=== PATIENT | male | born 1970 ===

== ENCOUNTER 2016-12-20 20:47 | Inpatient (IN) | payer MEDICARE, MEDICAID ==
[2016-12-20 20:47] VITALS: BMI 20.7
[2016-12-20 22:29] LABS: BASO # 0.2 K/uL (0.0-0.2); BASO % 2.6 % (0.0-2.0); EOS # 0.2 K/uL (0.0-0.7); EOS % 3.5 % (0.0-4.0); HEMATOCRIT 41.8 % (35.0-51.0); LYMPH # 0.9 K/uL (1.0-4.3); LYMPH % 15.1 % (20.0-40.0); MEAN CELL VOLUME 95.2 fL (80.0-94.0); MEAN CORPUSCULAR HEMOGLOBIN 31.4 pg (27.0-31.0); MEAN PLATELET VOLUME 9.1 fL (7.2-11.7); MONO # 0.6 K/uL (0.0-0.8); MONO % 10.2 % (0.0-10.0); RED CELL DISTRIBUTION WIDTH 18.2 % (11.5-14.5); WHITE BLOOD COUNT 5.9 K/uL (4.8-10.8)
[2016-12-20 22:37] LABS: POTASSIUM 5.1 mmol/L (3.6-5.2)
[2016-12-20 22:39] LABS: ALB/GLOB RATIO 1.7 (1.0-2.1); BILIRUBIN,TOTAL 0.8 mg/dL (0.2-1.3); TOTAL PROTEIN 7.8 g/dL (6.3-8.3)
[2016-12-20 22:40] LABS: CALCIUM 8.2 mg/dl (8.6-10.4)
[2016-12-20] MEDS ORDERED: (Novolin R) Insulin Human Regular 100 units/ml vial IV STA (23:01)
[2016-12-20] MEDS ORDERED: (Novolin R) Insulin Human Regular 100 units/ml vial ONE (23:07)
[2016-12-21] MEDS ORDERED: Piperacill/Tazo 2.25gm in Dex 2.25 GM/50 ML BAG IVPB STA (02:29)
--- NOTE | 2016-12-21 04:29 | C.PDOC ---
History Of Present Illness 46 y/o male presents to ED sent by Dr. Anderson for admission. Patient was seen at his office for recurrent right ear pain and recently completed 8week course of antibiotic for malignant Tony external. Patient denies fever, headache, nasal congestion or any other complaints at this time. Chief Complaint (Nursing): ENT Problem History Per: Patient History/Exam Limitations: None Onset/Duration Of Symptoms: Days Past Medical History Reviewed: Historical Data, Nursing Documentation, Vital Signs Vital Signs: Last Vital Signs Temp 98 F 12/21/16 03:07 Pulse 68 12/21/16 03:07 Resp 18 12/21/16 03:07 BP 160/70 H 12/21/16 03:07 Pulse Ox 98 12/21/16 04:50 - Medical History PMH: Anemia, Diabetes (type II), HTN, Hypercholesterolemia, Hyperlipidemia, Pneumonia, End Stage Renal Disease (Dialysis M,W,F), Chronic Kidney Disease Surgical History: Appendectomy - [facility] Procedures DILATION OF L RENAL ART WITH 2 DRUG-ELUT, PERC APPROACH (10/11/16) DILATION OF R RENAL ART WITH 3 DRUG-ELUT, PERC APPROACH (10/11/16) FLUOROSCOPY OF SUPERIOR VENA CAVA, GUIDANCE (10/11/16) HEMODIALYSIS (11/22/14) INFLUENZA VACCINATION (11/22/14) INSERTION OF INFUSION DEV INTO SUP VENA CAVA, PERC APPROACH (10/11/16) PERFORMANCE OF URINARY FILTRATION, MULTIPLE (10/11/16) PERFORMANCE OF URINARY FILTRATION, SINGLE (03/25/15) ULTRASONOGRAPHY OF SUPERIOR VENA CAVA, GUIDANCE (10/11/16) Family History: States: No Known Family Hx - Social History Hx Alcohol Use: No Hx Substance Use: No Review Of Systems Constitutional: Negative for: Fever, Chills ENT: Positive for: Ear Pain. Negative for: Ear Discharge, Nose Congestion Cardiovascular: Negative for: Chest Pain Respiratory: Negative for: Shortness of Breath Gastrointestinal: Negative for: Nausea, Vomiting Skin: Negative for: Rash Physical Exam - Physical Exam Appears: Non-toxic, No Acute Distress Skin: Normal Color, Warm, Dry Head: Atraumatic, Normacephalic Eye(s): bilateral: Normal Inspection, EOMI Ear(s): Left: Normal, Right: TM Erythema, Other (Pinna tender to touch) Oral Mucosa: Moist Throat: Normal, No Erythema, No Exudate, No Drooling Neck: Normal ROM, Supple Chest: Symmetrical Cardiovascular: Rhythm Regular Respiratory: Normal Breath Sounds, No Rales, No Rhonchi, No Wheezing Gastrointestinal/Abdominal: Soft, No Tenderness, No Guarding, No Rebound Neurological/Psych: Oriented x3 ED Course And Treatment - Laboratory Results Result Diagrams: 12/20/16 22:26 12/20/16 22:26 O2 Sat by Pulse Oximetry: 98 (RA) Pulse Ox Interpretation: Normal Medical Decision Making Medical Decision Making: Spoke to Dr. Anderson who advised to defer antibiotics for ID Spoke to Dr. Basilio who will admit patient to her service Disposition - Disposition Disposition: HOSPITALIZED Disposition Time: 00:30 Condition: STABLE - Clinical Impression Clinical Impression: Otitis externa, ESRD (end stage renal disease), Hyperglycemia - Scribe Statement The provider has reviewed the documentation as recorded by the Justinibsakina Skinner All medical record entries made by the Justinibsakina were at my direction and personally dictated by me. I have reviewed the chart and agree that the record accurately reflects my personal performance of the history, physical exam, medical decision making, and the department course for this patient. I have also personally directed, reviewed, and agree with the discharge instructions and disposition.
[2016-12-21 08:42] LABS: BASO # 0.1 K/uL (0.0-0.2); BASO % 1.3 % (0.0-2.0); EOS # 0.3 K/uL (0.0-0.7); EOS % 4.8 % (0.0-4.0); HEMATOCRIT 41.1 % (35.0-51.0); LYMPH # 0.7 K/uL (1.0-4.3); MEAN CELL VOLUME 93.4 fL (80.0-94.0); MEAN CORPUSCULAR HEMOGLOBIN 30.6 pg (27.0-31.0); MEAN CORPUSCULAR HGB CONC 32.8 g/dL (33.0-37.0); MEAN PLATELET VOLUME 8.6 fL (7.2-11.7); MONO # 0.7 K/uL (0.0-0.8); MONO % 10.5 % (0.0-10.0); RED CELL DISTRIBUTION WIDTH 17.9 % (11.5-14.5); WHITE BLOOD COUNT 6.4 K/uL (4.8-10.8)
[2016-12-21 08:52] LABS: POTASSIUM 5.1 mmol/L (3.6-5.2)
[2016-12-21 08:54] LABS: ALB/GLOB RATIO 1.7 (1.0-2.1); BILIRUBIN,TOTAL 0.8 mg/dL (0.2-1.3)
[2016-12-21 08:55] LABS: CALCIUM 7.9 mg/dl (8.6-10.4)
[2016-12-21] MEDS ORDERED: Piperacill/Tazo 2.25gm in Dex 2.25 GM/50 ML BAG IVPB SCH (10:00)
--- NOTE | 2016-12-21 11:27 | CP.PCM.PN ---
Subjective - Date & Time of Evaluation Date of Evaluation: 12/21/16 Time of Evaluation: 10:30 - Subjective Subjective: H"&P dictated #[id number] Objective - Vital Signs/Intake and Output Vital Signs (last 24 hours): Temp Pulse Resp BP Pulse Ox 98.7 F 70 20 196/80 H 97 12/21/16 08:00 12/21/16 08:00 12/21/16 08:00 12/21/16 08:00 12/21/16 08:00 Intake and Output: 12/21/16 12/21/16 06:59 18:59 Intake Total 170 Balance 170 - Medications Medications: Current Medications Clonidine HCl (Catapres) 0.3 mg PO TID KI Heparin Sodium (Porcine) (Heparin) 5,000 units SC Q12 KI Piperacillin Sod/Tazobactam Sod (Zosyn 2.25 Gm Iv Premix) 2.25 gm in 50 mls @ 100 mls/hr IVPB Q8H KI Labetalol HCl (Trandate) 200 mg PO BID KI Losartan Potassium (Cozaar) 25 mg PO DAILY KI Minoxidil (Loniten) 10 mg PO BIDPC KI Pneumococcal Polyvalent Vaccine (Pneumovax 23 Vaccine) 0.5 ml IM .ONCE ONE Stop: 12/23/16 10:01 - Labs Labs: 12/21/16 08:31 12/21/16 08:31
--- NOTE | 2016-12-21 14:48 | CP.PCM.CON ---
History of Present Illness - History of Present Illness History of Present Illness: dictated Past Patient History - Infectious Disease Hx of Infectious Diseases: None - Tetanus Immunizations Tetanus Immunization: Unknown - Past Medical History & Family History Past Medical History?: Yes - Past Social History Smoking Status: Never Smoked - CARDIAC Hx Hypercholesterolemia: Yes Hx Hypertension: Yes - PULMONARY Hx Pneumonia: Yes - NEUROLOGICAL Hx Neurological Disorder: No - HEENT Hx HEENT Problems: Yes Hx Cataracts: Yes (with surgery) - RENAL Hx Chronic Kidney Disease: Yes - ENDOCRINE/METABOLIC Hx Endocrine Disorders: Yes Hx Diabetes Mellitus Type 1: Yes - HEMATOLOGICAL/ONCOLOGICAL Hx Anemia: Yes - INTEGUMENTARY Hx Dermatological Problems: No - MUSCULOSKELETAL/RHEUMATOLOGICAL Hx Musculoskeletal Disorders: No Hx Falls: No - GASTROINTESTINAL Hx Gastrointestinal Disorders: Yes Hx Nausea: Yes Hx Vomiting: Yes Other/Comment: DIABETIC GASTROPARESIS - GENITOURINARY/GYNECOLOGICAL Hx Genitourinary Disorders: Yes Other/Comment: Failed renal transplant - PSYCHIATRIC Hx Substance Use: No - SURGICAL HISTORY Hx Appendectomy: Yes - ANESTHESIA Hx Anesthesia: Yes Hx Anesthesia Reactions: No Meds Allergies/Adverse Reactions: Allergies Allergy/AdvReac Type Severity Reaction Status Date / Time No Known Allergies Allergy Verified 11/06/16 15:40 - Medications Medications: Current Medications Clonidine HCl (Catapres) 0.3 mg PO TID [facility] Last Admin: 12/21/16 14:37 Dose: Not Given Heparin Sodium (Porcine) (Heparin) 5,000 units SC Q12 [facility] Last Admin: 12/21/16 11:34 Dose: 5,000 units Heparin Sodium (Porcine) (Heparin) 3,000 units IVP MWF [facility] Piperacillin Sod/Tazobactam Sod (Zosyn 2.25 Gm Iv Premix) 2.25 gm in 50 mls @ 100 mls/hr IVPB Q8H [facility] Last Admin: 12/21/16 10:00 Dose: 100 mls/hr Labetalol HCl (Trandate) 200 mg PO BID [facility] Last Admin: 12/21/16 11:33 Dose: 200 mg Losartan Potassium (Cozaar) 25 mg PO DAILY [facility] Last Admin: 12/21/16 11:34 Dose: 25 mg Minoxidil (Loniten) 10 mg PO BIDPC [facility] Last Admin: 12/21/16 11:33 Dose: 10 mg Pneumococcal Polyvalent Vaccine (Pneumovax 23 Vaccine) 0.5 ml IM .ONCE ONE Stop: 12/23/16 10:01 Results - Vital Signs Recent Vital Signs: Last Vital Signs Temp 98.7 F 12/21/16 08:00 Pulse 70 12/21/16 08:00 Resp 20 12/21/16 08:00 BP 196/80 H 12/21/16 08:00 Pulse Ox 97 12/21/16 08:00 - Labs Result Diagrams: 12/21/16 08:31 12/21/16 08:31 Labs: Laboratory Results - last 24 hr 12/20/16 12/20/16 12/21/16 22:26 22:26 00:13 WBC 5.9 RBC 4.39 L Hgb 13.8 Hct 41.8 MCV 95.2 H MCH 31.4 H MCHC 33.0 RDW 18.2 H Plt Count 147 MPV 9.1 Neut % (Auto) 68.6 Lymph % (Auto) 15.1 L Dickenson % (Auto) 10.2 H Eos % (Auto) 3.5 Baso % (Auto) 2.6 H Neut # 4.0 Lymph # 0.9 L Dickenson # 0.6 Eos # 0.2 Baso # 0.2 Sodium 123 L Potassium 5.1 Chloride 83 L Carbon Dioxide 19 L Anion Gap 26 H BUN 76 H Creatinine 8.3 H* Est GFR ( Amer) 8 Est GFR (Non-Af Amer) 7 POC Glucose (mg/dL) 142 H Random Glucose 602 H* Hemoglobin A1c Calcium 8.2 L Total Bilirubin 0.8 AST 18 ALT 34 Alkaline Phosphatase 141 H Total Protein 7.8 Albumin 4.9 Globulin 2.9 Albumin/Globulin Ratio 1.7 12/21/16 12/21/16 12/21/16 01:45 02:27 04:18 WBC RBC Hgb Hct MCV MCH MCHC RDW Plt Count MPV Neut % (Auto) Lymph % (Auto) Dickenson % (Auto) Eos % (Auto) Baso % (Auto) Neut # Lymph # Dickenson # Eos # Baso # Sodium Potassium Chloride Carbon Dioxide Anion Gap BUN Creatinine Est GFR ( Amer) Est GFR (Non-Af Amer) POC Glucose (mg/dL) 34 L* 72 183 H Random Glucose Hemoglobin A1c Calcium Total Bilirubin AST ALT Alkaline Phosphatase Total Protein Albumin Globulin Albumin/Globulin Ratio 12/21/16 12/21/16 12/21/16 06:36 08:31 08:31 WBC 6.4 RBC 4.40 Hgb 13.5 Hct 41.1 MCV 93.4 MCH 30.6 MCHC 32.8 L RDW 17.9 H Plt Count 146 MPV 8.6 Neut % (Auto) 72.4 Lymph % (Auto) 11.0 L Dickenson % (Auto) 10.5 H Eos % (Auto) 4.8 H Baso % (Auto) 1.3 Neut # 4.6 Lymph # 0.7 L Dickenson # 0.7 Eos # 0.3 Baso # 0.1 Sodium 127 L Potassium 5.1 Chloride 87 L Carbon Dioxide 19 L Anion Gap 26 H BUN 89 H Creatinine 9.0 H* Est GFR ( Amer) 8 Est GFR (Non-Af Amer) 6 POC Glucose (mg/dL) 216 H Random Glucose 261 H Hemoglobin A1c Calcium 7.9 L Total Bilirubin 0.8 AST 19 ALT 31 Alkaline Phosphatase 119 Total Protein 7.0 Albumin 4.4 Globulin 2.6 Albumin/Globulin Ratio 1.7 12/21/16 12/21/16 12/21/16 08:31 10:30 12:31 WBC RBC Hgb Hct MCV MCH MCHC RDW Plt Count MPV Neut % (Auto) Lymph % (Auto) Dickenson % (Auto) Eos % (Auto) Baso % (Auto) Neut # Lymph # Dickenson # Eos # Baso # Sodium Potassium Chloride Carbon Dioxide Anion Gap BUN Creatinine Est GFR ( Amer) Est GFR (Non-Af Amer) POC Glucose (mg/dL) 302 H 297 H Random Glucose Hemoglobin A1c 8.4 H D Calcium Total Bilirubin AST ALT Alkaline Phosphatase Total Protein Albumin Globulin Albumin/Globulin Ratio
--- NOTE | 2016-12-21 16:26 | PN ---
DATE: 12/21/2016 REASON FOR CONSULTATION: Malignant otitis externa and ear pain. HISTORY OF PRESENT ILLNESS: This is a 46-year-old male who was admitted to [facility] a month ago with a diagnosis of malignant otitis externa. The patient was given IV antibiotics via PICC line. He presented to me yesterday in the office saying that his ear pain is back. He was sent to the ER at [facility] and was admitted to the hospital. The patient states that the pain is the same as before on and off, moderate in intensity and has decreased hearing on the right side, it is constant and moderate in intensity. He has had that for a month. PAST MEDICAL HISTORY: As noted in the chart by me. MEDICATIONS: As noted in the chart by me. PHYSICAL EXAMINATION: HEAD: Atraumatic and normocephalic. FACE: Good facial movements bilaterally. CONSTITUTIONAL: Well fed, well nourished. COMMUNICATION: Communicates well and appropriately. EXTERNAL NOSE AND EARS: No masses. No lesions. No erythema. No edema. INTERNAL NOSE: Deviated septum. No masses. No lesions. No erythema. No edema. EARS: The wick that I are placed in the office is still in place. NECK: Supple. THYROID: No thyromegaly. No goiter. LYMPH NODES: No lymphadenopathy of the neck. ORAL CAVITY AND OROPHARYNX: No masses. No lesions. No erythema. No edema. LIPS AND GUMS: No masses. No lesions. No erythema. No edema. ASSESSMENT: 1. Possible malignant otitis externa. 2. Deviated septum. PLAN: The patient should have a repeat CT, MRI and bone scan done to see if he has persistent malignant otitis externa. Eb Anderson MD [facility]
[2016-12-21] MEDS: Meropenem 500 MG in Sodium Chloride 0.9% 100 ML IVPB SCH (19:03)
[2016-12-21] MEDS: (Novolin R) Insulin Human Regular 100 units/ml vial SC SCH (22:00)
--- NOTE | 2016-12-21 22:34 | HP ---
CHIEF COMPLAINT: The patient was referred by Dr. Anderson for persistent malignant otitis externa. HISTORY OF PRESENT ILLNESS: Mr. Albrecht is a 46-year-old male with past medical history of diabetes mellitus; hypertension; end-stage renal disease, status post kidney transplant in 2003, a failed transplant, back on hemodialysis, receiving hemodialysis on Saturday, Saturday and Saturday; hyperlipidemia; history of anemia from chronic disease; osteomyelitis, treated with long-term IV antibiotics, recently admitted to [facility] in the month of September for a malignant otitis externa. The patient was given 8 weeks of IV antibiotics via PICC line. After the antibiotics were completed, the patient went back to ENT for evaluation. The patient was also complaining of intermittent right ear pain. The patient was evaluated by ENT and was found to be having persistent otitis externa, and the patient is being sent to ED for further evaluation and treatment. When I examined, the patient denies any headache or dizziness, complaining of right ear pain intermittently; there is no oozing or discharge. Denies any left ear pain, but complains of decreased hearing in the right ear. Denies any chest pain, shortness of breath or wheezing. Denies any nausea, vomiting, abdominal pain, diarrhea or constipation. Denies any urinary complaints. Denies any leg pains or leg cramps. Denies any other neurologic symptoms. PAST MEDICAL HISTORY: Hypertension; diabetes mellitus; end-stage renal disease; hyperlipidemia; history of osteomyelitis; history of anemia; right ear malignant otitis externa, status post completion of long-term IV antibiotics. PAST SURGICAL HISTORY: Status post kidney transplant in 2003, appendectomy and AV fistula. FAMILY HISTORY: Diabetes mellitus in grandfather. PERSONAL HISTORY: He is single, lives alone, currently not working. SOCIAL HISTORY: Denies smoking, alcohol or drug abuse. ALLERGIES: NO KNOWN DRUG ALLERGIES. MEDICATIONS: Include Nephro-Elvie, Velphoro 500 mg p.o. t.i.d., simvastatin 10 mg at bedtime, Zofran as needed, minoxidil 10 mg p.o. b.i.d., labetalol 200 mg p.o. b.i.d., insulin lispro 3 units subQ t.i.d., glargine insulin 12 units subQ, Lantus 10 units subQ q.a.m., Nexium 40 mg daily, clonidine 0.3 mg p.o. t.i.d. and Sensipar 30 mg p.o. daily. REVIEW OF SYSTEMS: As described in history of present illness. All other systems reviewed and were found to be negative. PHYSICAL EXAMINATION: GENERAL: Middle-aged male, lying in bed, in no acute distress. VITAL SIGNS: Blood pressures 175/88, pulse 77, respirations 20, temperature 98.2 degrees Fahrenheit and O2 sats 94% on room air. HEENT: Pupils equal, round and reacting to light and accommodation. Extraocular muscles intact. No icterus. Positive pallor. No oral thrush. No pharyngeal congestion. No nasal congestion. Right ear with dressing in place. NECK: Supple. No JVD. No thyromegaly. LUNGS: Bilateral vesicular breath sounds. No wheezing. No rhonchi. CARDIOVASCULAR SYSTEM: S1 and S2 present, regular. ABDOMEN: Soft and nontender. Bowel sounds present. No guarding. No rigidity. No rebound tenderness noted. CENTRAL NERVOUS SYSTEM: Alert, awake and oriented x3. No focal deficits noted. EXTREMITIES: No edema. Palpable peripheral pulses. Left upper extremity AV access. LABORATORY DATA: Labs done on admission, WBC 5.9, hemoglobin 13.8, hematocrit 41.8 and platelets 147. Sodium 123, potassium 5.1, chloride 83, bicarbonate 19, BUN 76, creatinine 8.3, glucose 602, hemoglobin A1c of 8.4, calcium 8.2, AST 18, ALT 34, alkaline phosphatase 141, total protein 7.8 and albumin 4.9. ASSESSMENT: A middle-aged male with history of hypertension; diabetes mellitus; end-stage renal disease, on hemodialysis; status post kidney transplant, failed transplant requiring hemodialysis; hyperlipidemia; history of osteomyelitis; history of anemia of chronic disease; recently treated for malignant otitis externa of the right ear with long-term IV antibiotics, returning to the hospital with right ear pain and with persistent infection, the patient is being admitted for further management. 1. Possible right ear otitis externa, status post failed antibiotic therapy, exterminator helper and uncontrolled hypertension. 2. Diabetes mellitus, uncontrolled. 3. End-stage renal disease, on hemodialysis, Saturday, Saturday, Saturday. 4. Hyperlipidemia. 5. History of osteomyelitis, status post treatment. PLAN: The patient is being admitted to the medical floor. The patient's blood pressure is high, we will adjust his blood pressure medication. Zosyn was discontinued and the patient was started on meropenem by Dr. Hughes, it is 500 mg IV q. 12 hours. Blood cultures were done. Renal consult and ENT consult requested. The patient is for hemodialysis today. We will resume all his home medications. We will add further recommendation as his clinical course progresses. Gretchen Basilio MD
--- NOTE | 2016-12-22 02:14 | CON ---
INFECTIOUS DISEASE CONSULTATION DATE: REQUESTED BY: Gretchen Basilio MD HISTORY OF PRESENT ILLNESS: This patient is a 46-year-old male. He has a history of end-stage renal disease. He also has a history of failed transplant, which he had from his sister and he says after the failed transplant, he has been 2 to 3 years on dialysis now. He has diabetes type 2, hypertension, hyperlipidemia, hypercholesterolemia, history of pneumonia, and chronic kidney disease. He has been having this recurrent right ear pain and he recently was in [place]. He said he stayed there a month and then had a PICC line in the left arm and went home with 8 weeks of antibiotics for malignant otitis externa. I was not able to get the name of the Infectious Diseases who treated him, but in the next few days. He denies any fever and no headache. Does complain of pain over the right ear. He states he is also having trouble hearing and he has pain, which comes and goes. He cannot touch his right ear and the surrounding area is also very tender at times. He did tell me that he took 8 weeks of Zosyn, which just completed yesterday and he saw Dr. Anderson and was told that the infection was still there, hence was admitted here and I am asked to evaluate for antibiotics and the last antibiotic he had was Zosyn at a decreased dose because of his renal failure. He denies any fevers out as such and he does have surgical history of appendicectomy and failed transplant kidney from his sister and also fistula, he has a right arm fistula at this time and previous history of dialysis prior to the transplant. PAST SURGICAL HISTORY: Appendicectomy. FAMILY HISTORY: Noncontributory otherwise. SOCIAL HISTORY: Negative for alcohol or drug abuse according to the patient. ALLERGIES: HE IS NOT ALLERGIC TO ANY MEDICINE. At the present time, he was seen in the Dialysis Unit. MEDICATIONS: Catapres, heparin subcutaneous, Trandate, Cozaar, and I just put him on meropenem at this time. He is also on minoxidil for his blood pressure and at this time I would discontinue the Zosyn and start him on meropenem. REVIEW OF SYSTEMS: He does complain of ear pain. He does complain of decreased hearing. He states it was slightly better after the treatment, but he is denying any nausea or vomiting. No cough or cold and no other symptoms at this time. He is on dialysis and is not able to get much elaborate history. PHYSICAL EXAMINATION GENERAL: He is alert and oriented x3. He is able to give history. VITAL SIGNS: T-max is 98.2 today, pulse is 77, and blood pressure is 192/77. HEENT: Head is atraumatic and normocephalic. Right ear has tenderness present and it is not that warm to touch, but it is swollen and has tenderness on the pinna as well as preauricular and now he says the pain from the ear goes back to the occipital area. Eyes, pupils are reactive to light. NECK: Supple. JVP is flat. Trachea is central. LUNGS: Clear. No crackles or rales present. HEART: S1 and S2 is regular. No murmurs appreciated. ABDOMEN: Soft and nontender. No guarding and no rigidity present. The fistula site appears to have some swelling, right cubital fossa. EXTREMITIES: Have no edema, clubbing or cyanosis otherwise. LABORATORY DATA: Noted. White count is 6.4, hemoglobin is 13.5, hematocrit is 41.1, and platelet count is 146. Sodium is 127, potassium is 5.1, chloride is 87, CO2 is 19, and creatinine is 9, but he is a dialysis patient and his PICC line was discontinued yesterday, he said. IMPRESSION AND PLAN: At this time, I would want to get blood cultures if not done and he is dialysis patient and will follow Ear Nose and Throat evaluation and further recommendations from them and will follow. We need to get old records from the other hospital. At this time, I have put him on meropenem 500 q. 12 hours. If he does not continue to improve, we may add Cipro p.o. 500 mg once a day, but since he has had antibiotics and I am concerned that he may develop Clostridium difficile. Also, we will put him on Bacid at this time. I will be away until Saturday and I will endorse this patient to the covering doctor. Linda Hughes MD [facility] # [id number]
[2016-12-22] MEDS: Meropenem 500 MG in Sodium Chloride 0.9% 100 ML IVPB SCH ×2 (04:06→17:00)
[2016-12-22] MEDS: (Novolin R) Insulin Human Regular 100 units/ml vial SC SCH ×2 (08:30→12:30)
[2016-12-22] MEDS ORDERED: (Novolin R) Insulin Human Regular 100 units/ml vial SC ONE (08:51)
[2016-12-22] MEDS: Lactobacillus Acidophilus 500 MU Cap PO SCH ×2 (10:31→17:22)
--- NOTE | 2016-12-22 11:20 | CP.PCM.CON ---
History of Present Illness - History of Present Illness History of Present Illness: REASONS FOR CONSULT : ESRD ON HD M W F ANEMIA OF CKD .. H/H STABLE PT IS WELL KNOWN TO OUR RENAL SERVICE .. ON HD M W F CONSTANTINE THE LAST 2-3 YEARS CAME IN WITH RECURRENT OTITIS EXTERNA .. WAS SENT BY ENT FOR ADMISSION 46 y/o male presents to ED sent by Dr. Anderson for admission. Patient was seen at his office for recurrent right ear pain and recently completed 8week course of antibiotic for malignant [place] external. Patient denies fever, headache, nasal congestion or any other complaints at this time. Chief Complaint (Nursing): ENT Problem History Per: Patient History/Exam Limitations: None Onset/Duration Of Symptoms: Days Past Medical History Reviewed: Historical Data, Nursing Documentation, Vital Signs Vital Signs: Last Vital Signs Temp 98 F 12/21/16 03:07 Pulse 68 12/21/16 03:07 Resp 18 12/21/16 03:07 BP 160/70 H 12/21/16 03:07 Pulse Ox 98 12/21/16 04:50 - Medical History PMH: Anemia, Diabetes (type II), HTN, Hypercholesterolemia, Hyperlipidemia, Pneumonia, End Stage Renal Disease (Dialysis M,W,F), Chronic Kidney Disease Surgical History: Appendectomy Past Patient History - Infectious Disease Hx of Infectious Diseases: None - Tetanus Immunizations Tetanus Immunization: Unknown - Past Medical History & Family History Past Medical History?: Yes - Past Social History Smoking Status: Never Smoked - CARDIAC Hx Hypercholesterolemia: Yes Hx Hypertension: Yes - PULMONARY Hx Pneumonia: Yes - NEUROLOGICAL Hx Neurological Disorder: No - HEENT Hx HEENT Problems: Yes Hx Cataracts: Yes (with surgery) - RENAL Hx Chronic Kidney Disease: Yes - ENDOCRINE/METABOLIC Hx Endocrine Disorders: Yes Hx Diabetes Mellitus Type 1: Yes - HEMATOLOGICAL/ONCOLOGICAL Hx Anemia: Yes - INTEGUMENTARY Hx Dermatological Problems: No - MUSCULOSKELETAL/RHEUMATOLOGICAL Hx Musculoskeletal Disorders: No Hx Falls: No - GASTROINTESTINAL Hx Gastrointestinal Disorders: Yes Hx Nausea: Yes Hx Vomiting: Yes Other/Comment: DIABETIC GASTROPARESIS - GENITOURINARY/GYNECOLOGICAL Hx Genitourinary Disorders: Yes Other/Comment: Failed renal transplant - PSYCHIATRIC Hx Substance Use: No - SURGICAL HISTORY Hx Appendectomy: Yes - ANESTHESIA Hx Anesthesia: Yes Hx Anesthesia Reactions: No Meds Allergies/Adverse Reactions: Allergies Allergy/AdvReac Type Severity Reaction Status Date / Time No Known Allergies Allergy Verified 11/06/16 15:40 - Medications Medications: Current Medications Clonidine HCl (Catapres) 0.3 mg PO TID [facility] Last Admin: 12/22/16 10:31 Dose: 0.3 mg Heparin Sodium (Porcine) (Heparin) 3,000 units IVP MWF [facility] Last Admin: 12/21/16 15:02 Dose: 3,000 units Meropenem 500 mg/ Sodium (Chloride) 100 mls @ 100 mls/hr IVPB Q12H [facility] Last Admin: 12/22/16 04:06 Dose: 100 mls/hr Insulin Human Regular (Novolin R) 0 unit SC ACHS [facility] PRN Reason: Protocol Last Admin: 12/22/16 08:30 Dose: 6 unit Labetalol HCl (Trandate) 200 mg PO BID [facility] Last Admin: 12/22/16 10:31 Dose: 200 mg Lactobacillus Acidophilus (Bacid Acidophilus) 1 cap PO BID [facility] Last Admin: 12/22/16 10:31 Dose: 1 cap Losartan Potassium (Cozaar) 25 mg PO DAILY [facility] Last Admin: 12/22/16 10:31 Dose: 25 mg Minoxidil (Loniten) 10 mg PO BIDPC [facility] Last Admin: 12/22/16 09:06 Dose: 10 mg Ondansetron HCl (Zofran Inj) 4 mg IVP Q8H PRN PRN Reason: vomiting Last Admin: 12/22/16 10:31 Dose: 4 mg Pneumococcal Polyvalent Vaccine (Pneumovax 23 Vaccine) 0.5 ml IM .ONCE ONE Stop: 12/23/16 10:01 Results - Vital Signs Recent Vital Signs: Last Vital Signs Temp 98.7 F 12/22/16 08:17 Pulse 75 12/22/16 08:17 Resp 20 12/22/16 08:17 BP 174/98 H 12/22/16 08:17 Pulse Ox 98 12/22/16 08:17 - Labs Result Diagrams: 12/21/16 08:31 12/21/16 08:31 Labs: Laboratory Results - last 24 hr 12/21/16 12/21/16 12/21/16 12:31 16:10 17:54 POC Glucose (mg/dL) 297 H 319 H 242 H 12/21/16 12/22/16 12/22/16 21:53 02:29 07:15 POC Glucose (mg/dL) 390 H 387 H 486 H* Assessment & Plan - Assessment and Plan (Free Text) Assessment: ESRD ON HD .. PT WAS SCEDULED FOR HIS HD .. CONSULT OBTAINED ANEMIA OF CKD .. H/H GOOD MULTIPLE CO MORBIDITIES R OTITIS P : WILL SCHEDULE HD ON C/O CURRENT CARE WILL F/U - Date & Time Date: 12/21/16 Time: 13:00
[2016-12-22] MEDS ORDERED: (Novolog) Insulin Aspart, Recombinant 100 u/ml 10 ml vial SC ONE (13:00)
--- NOTE | 2016-12-22 14:20 | CP.PCM.PN ---
Subjective - Date & Time of Evaluation Date of Evaluation: 12/22/16 Time of Evaluation: 14:17 - Subjective Subjective: on hd mwf consult done yesterday by Dr Armstrong Had hd Plan next hd saturday Stable for same rx and course as per ent will follow for ckd6. Objective - Vital Signs/Intake and Output Vital Signs (last 24 hours): Temp Pulse Resp BP Pulse Ox 98.7 F 75 20 174/98 H 98 12/22/16 08:17 12/22/16 08:17 12/22/16 08:17 12/22/16 08:17 12/22/16 08:17 Intake and Output: 12/22/16 12/22/16 06:59 18:59 Intake Total 250 Balance 250 - Medications Medications: Current Medications Clonidine HCl (Catapres) 0.3 mg PO TID [facility] Last Admin: 12/22/16 13:03 Dose: 0.3 mg Heparin Sodium (Porcine) (Heparin) 3,000 units IVP MWF [facility] Last Admin: 12/21/16 15:02 Dose: 3,000 units Meropenem 500 mg/ Sodium (Chloride) 100 mls @ 100 mls/hr IVPB Q12H [facility] Last Admin: 12/22/16 04:06 Dose: 100 mls/hr Insulin Aspart (Novolog) 12 unit SC AC [facility] Insulin Aspart (Novolog) 0 unit SC ACHS [facility] PRN Reason: Protocol Insulin Glargine (Lantus) 24 unit SC HS [facility] Labetalol HCl (Trandate) 200 mg PO BID [facility] Last Admin: 12/22/16 10:31 Dose: 200 mg Lactobacillus Acidophilus (Bacid Acidophilus) 1 cap PO BID [facility] Last Admin: 12/22/16 10:31 Dose: 1 cap Losartan Potassium (Cozaar) 25 mg PO DAILY [facility] Last Admin: 12/22/16 10:31 Dose: 25 mg Minoxidil (Loniten) 10 mg PO BIDPC [facility] Last Admin: 12/22/16 09:06 Dose: 10 mg Ondansetron HCl (Zofran Inj) 4 mg IVP Q8H PRN PRN Reason: vomiting Last Admin: 12/22/16 10:31 Dose: 4 mg Pneumococcal Polyvalent Vaccine (Pneumovax 23 Vaccine) 0.5 ml IM .ONCE ONE Stop: 10/29/17 10:01 - Labs Labs: 12/21/16 08:31 12/21/16 08:31 - Constitutional Appears: Non-toxic - Head Exam Head Exam: NORMAL INSPECTION - Eye Exam Eye Exam: Normal appearance - ENT Exam ENT Exam: Mucous Membranes Moist - Respiratory Exam Respiratory Exam: NORMAL BREATHING PATTERN - Cardiovascular Exam Cardiovascular Exam: REGULAR RHYTHM - GI/Abdominal Exam GI & Abdominal Exam: Soft - Neurological Exam Neurological Exam: Alert, Awake - Psychiatric Exam Psychiatric exam: Normal Affect, Normal Mood - Skin Skin Exam: Dry, Intact, Warm Assessment and Plan - Assessment and Plan (Free Text) Assessment: ckd6 Plan: hd mwf
--- NOTE | 2016-12-22 14:52 | CP.PCM.PN ---
Subjective - Date & Time of Evaluation Date of Evaluation: 12/22/16 Time of Evaluation: 14:35 - Subjective Subjective: Progress note dictated #[id number] Objective - Vital Signs/Intake and Output Vital Signs (last 24 hours): Temp Pulse Resp BP Pulse Ox 98.7 F 75 20 174/98 H 98 12/22/16 08:17 12/22/16 08:17 12/22/16 08:17 12/22/16 08:17 12/22/16 08:17 Intake and Output: 12/22/16 12/22/16 06:59 18:59 Intake Total 250 Balance 250 - Medications Medications: Current Medications Clonidine HCl (Catapres) 0.3 mg PO TID [facility] Last Admin: 12/22/16 13:03 Dose: 0.3 mg Heparin Sodium (Porcine) (Heparin) 3,000 units IVP MWF [facility] Last Admin: 12/21/16 15:02 Dose: 3,000 units Meropenem 500 mg/ Sodium (Chloride) 100 mls @ 100 mls/hr IVPB Q12H [facility] Last Admin: 12/22/16 04:06 Dose: 100 mls/hr Insulin Aspart (Novolog) 12 unit SC AC KI Insulin Aspart (Novolog) 0 unit SC ACHS [facility] PRN Reason: Protocol Insulin Glargine (Lantus) 24 unit SC HS [facility] Labetalol HCl (Trandate) 200 mg PO BID [facility] Last Admin: 12/22/16 10:31 Dose: 200 mg Lactobacillus Acidophilus (Bacid Acidophilus) 1 cap PO BID [facility] Last Admin: 12/22/16 10:31 Dose: 1 cap Losartan Potassium (Cozaar) 25 mg PO DAILY [facility] Last Admin: 12/22/16 10:31 Dose: 25 mg [facility] Last Admin: 12/22/16 09:06 Dose: 10 mg Ondansetron HCl (Zofran Inj) 4 mg IVP Q8H PRN PRN Reason: vomiting Last Admin: 12/22/16 10:31 Dose: 4 mg Pneumococcal Polyvalent Vaccine (Pneumovax 23 Vaccine) 0.5 ml IM .ONCE ONE Stop: 12/23/16 10:01 - Labs Labs: 12/21/16 08:31 12/21/16 08:31
[2016-12-22] MEDS: (Novolog) Insulin Aspart, Recombinant 100 u/ml 10 ml vial SC SCH ×3 (16:46→22:26)
--- NOTE | 2016-12-22 21:36 | PN ---
DATE: 12/22/2016 SUBJECTIVE: The patient is seen and examined at bedside. The patient is feeling slightly better. His ear pain is better. Denies any other complaints. PHYSICAL EXAMINATION GENERAL: A young male in no acute distress. VITAL SIGNS: Blood pressure is 174/98, pulse 75, respirations 20, temperature 98.7 degrees Fahrenheit, and O2 sat is 98% on 2 on liters nasal cannula. HEENT: Pupils equal, round and reacting to light and accommodation. Extraocular muscles intact. No icterus. No pallor. No oral thrush. No oropharyngeal congestion. NECK: Supple. No JVD. LUNGS: Bilateral vesicular breath sounds. No wheezing. No rhonchi. CARDIOVASCULAR: S1 and S2 present, regular. ABDOMEN: Soft and nontender. Bowel sounds present. No guarding. No rigidity. No rebound tenderness noted. [employer]: Alert, awake and oriented x3. No focal deficits noted. MEDICATIONS: Include Catapres 0.3 mg t.i.d., heparin 3000 units IV push on Saturday, Saturday and Saturday, NovoLog 12 units subcu a.c., Lantus 24 units at bedtime, labetalol 200 mg p.o. b.i.d., ____ losartan 25 mg daily, meropenem 500 mg IV q. 12 hours, minoxidil 10 mg p.o. b.i.d., Zofran as needed. LABORATORY DATA: His Accu-Cheks are 287, 242, 390, 387, 486. Blood cultures negative so far. ASSESSMENT AND PLAN: Middle-aged male with history of hypertension and diabetes mellitus, end-stage renal disease, hyperlipidemia, history of osteomyelitis, anemia, right ear malignant otitis externa status post long time IV antibiotics, admitted with recurrent or persistent otitis externa. We will continue with meropenem. We will follow up with ENT. The patient received hemodialysis yesterday. Discussed with renal. We will request endocrinology consult with Dr. Milan. Gretchen Basilio MD
[2016-12-22] MEDS ORDERED: (Lantus) Insulin Glargine, Recombinant SC SCH (22:00)
--- NOTE | 2016-12-23 02:47 | CON ---
ENDOCRINOLOGY CONSULT DATE: LOCATION: Room 368. HISTORY OF PRESENT ILLNESS: This is a 46-year-old male with known history of type 2 insulin-requiring diabetes , presenting here with malignant otitis media and persistent and recurrent severe right ear pain with a recent 2 months' course of antibiotics and is now being admitted for further workup and management by ENT and Infectious Disease for further IV antibiotic management and is also referred now for diabetic evaluation because of persistent hyperglycemic accelerations as noted thereof. PAST MEDICAL HISTORY: As mentioned above, history of type 2 insulin-requiring diabetes, on a combination of Lantus given as 10 units in the morning and 12 units at bedtime with Humalog given as 3 units t.i.d. as p.r.n. before each meal given, history of hypertension, cardiovascular disease, dyslipidemia, history of diabetic retinopathy, polyneuropathy, and nephropathy with end-stage renal disease, on dialysis dependence. He also has a history of diabetic gastroparesis with previous admissions for intractable vomiting as noted. He also had a previous failed renal transplant and currently is back on hemodialysis for the last 2 years as noted, and history of chronic anemia related to underlying end-stage renal disease. FAMILY HISTORY: Positive for diabetes and hypertension. SOCIAL HISTORY: The patient has a supportive family. No known substance use. REVIEW OF SYSTEMS: As mentioned above. Admits to generalized body weakness with easy fatigability and tiredness and suboptimal energy level. Also admits to episodic bouts of dizziness and lightheadedness with febrile episodes as noted. Also admits to bifrontal headaches with visual blurring. No chest pain, palpitations or PND. His oral intake is variable with nausea, dyspepsia, and vague upper abdominal pain and also admits to habitual constipation. PHYSICAL EXAMINATION GENERAL: This is an average built male in no apparent distress. VITAL SIGNS: Blood pressure of 170/90, pulse of 100 beats per minute and regular, temperature of 99 and respirations 20. Height is 5 feet 9 inches. Weight is 164 pounds. HEENT: Head is normocephalic. Eyes anicteric with pale conjunctivae. Funduscopy not possible at this time. Ears, nose, and throat otherwise normal. NECK: Supple. Thyroid gland is normal in size. No carotid bruits or cervical adenopathy. CARDIOPULMONARY: Reveal an adynamic precordium. S1 and S2 is rapid and regular. LUNGS: Clear to auscultation. ABDOMEN: Flat, soft with positive bowel sounds. EXTREMITIES: No peripheral edema. Pulses are +2 bilaterally. LABORATORY DATA: The chemistries showed a BUN of 89, sodium of 127, potassium of 5.1, chloride of 87, CO2 of 19, glucose of 261 and creatinine of 9.0. His hemoglobin A1c is 8.4% as noted and the latest glucose levels are bridged from 387 mg/dL to 486 mg/dL. ASSESSMENT: This is a 46-year-old male with uncontrolled and decompensated type 2 insulin-requiring diabetes, who presented here with recurrent otitis externa and supervening hyperglycemic accelerations as noted thereof. He also has diabetic microvascular complications of diabetic retinopathy, polyneuropathy and nephropathy with end-stage renal disease, on dialysis dependence with a prior history of fatal renal transplant. PLAN OF MANAGEMENT: As discussed with the patient and staff, we will modify his current insulin regimen and switch him over to a more physiologic basal and bolus insulin drug combination with NovoLog given at 10 units subcutaneous as start dose followed by Novolin to be given as 12 units subcutaneous t.i.d. before meals to start today as ordered. We will also add basal insulin with lactose to be given at 24 units subcutaneous at bedtime daily to start tonight. We will titrate incrementally as indicated to optimize metabolic control. We will obtain serial chemistries and supplement accordingly as needed. We will modify the coverage scale to obviate hypoglycemia and detailed orders have been given. We will obtain serial chemistries and supplement accordingly as needed. We will follow and advise accordingly. Lorrie Milan MD
[2016-12-23] MEDS: Meropenem 500 MG in Sodium Chloride 0.9% 100 ML IVPB SCH ×2 (03:02→15:01)
[2016-12-23] MEDS: (Novolog) Insulin Aspart, Recombinant 100 u/ml 10 ml vial SC SCH ×7 (08:15→22:10)
[2016-12-23] MEDS: Lactobacillus Acidophilus 500 MU Cap PO SCH ×2 (09:16→17:29)
[2016-12-23] MEDS ORDERED: Pneumococcal 23-Valent Vaccine IM ONE (10:00)
--- NOTE | 2016-12-23 16:27 | CP.PCM.PN ---
Subjective - Date & Time of Evaluation Date of Evaluation: 12/23/16 Time of Evaluation: 15:50 - Subjective Subjective: Progress note dictated #[id number] Objective - Vital Signs/Intake and Output Vital Signs (last 24 hours): Temp Pulse Resp BP Pulse Ox 97.8 F 78 20 168/74 H 97 12/23/16 08:31 12/23/16 08:31 12/23/16 08:31 12/23/16 08:31 12/23/16 08:31 Intake and Output: 12/23/16 12/23/16 06:59 18:59 Intake Total 500 340 Balance 500 340 - Medications Medications: Current Medications Clonidine HCl (Catapres) 0.3 mg PO TID [facility] Last Admin: 12/23/16 14:57 Dose: 0.3 mg Heparin Sodium (Porcine) (Heparin) 3,000 units IVP MWF [facility] Last Admin: 12/21/16 15:02 Dose: 3,000 units Meropenem 500 mg/ Sodium (Chloride) 100 mls @ 100 mls/hr IVPB Q12H [facility] Last Admin: 12/23/16 15:01 Dose: 100 mls/hr Ibuprofen (Motrin Tab) 400 mg PO Q8 PRN PRN Reason: pain Last Admin: 12/23/16 09:18 Dose: 400 mg Insulin Aspart (Novolog) 0 unit SC ACHS [facility] PRN Reason: Protocol Last Admin: 12/23/16 13:15 Dose: Not Given Insulin Aspart (Novolog) 6 unit SC AC KI Insulin Glargine (Lantus) 20 unit SC HS KI Labetalol HCl (Trandate) 200 mg PO BID [facility] Last Admin: 12/23/16 09:17 Dose: 200 mg Lactobacillus Acidophilus (Bacid Acidophilus) 1 cap PO BID [facility] Last Admin: 12/23/16 09:16 Dose: 1 cap Losartan Potassium (Cozaar) 25 mg PO DAILY [facility] Last Admin: 12/23/16 09:16 Dose: 25 mg Minoxidil (Loniten) 10 mg PO BIDPC [facility] Last Admin: 12/23/16 09:17 Dose: 10 mg Ondansetron HCl (Zofran Inj) 4 mg IVP Q8H PRN PRN Reason: vomiting Last Admin: 12/22/16 10:31 Dose: 4 mg - Labs Labs: 12/21/16 08:31 12/21/16 08:31
[2016-12-23] MEDS ORDERED: (Novolog) Insulin Aspart, Recombinant 100 u/ml 10 ml vial SC SCH (16:30)
--- NOTE | 2016-12-23 19:26 | PN ---
DATE: ENDOCRINOLOGY FOLLOWUP NOTE LOCATION: Room 368. SUBJECTIVE: This is a 46-year-old male presenting here with malignant otitis externa, currently receiving IV antibiotic management and is also being followed closely for metabolic management because of extremes of glycemic fluctuations from hyperglycemia down to hypoglycemic episodes as noted. His latest glucose levels have ranged from 58 to 72 and 102 mg/dL. His latest chemistry showed a BUN 89 with creatinine of 9.0, sodium 127, potassium 5.1, chloride 87, CO2 of 19, glucose 261 as noted. He also has end-stage renal disease, on dialysis dependence at this time. So, for now, we will modify once again his basal and bolus insulin regimen and lower the NovoLog to 6 units subcutaneous t.i.d. before meals as ordered. We will also lower the basal insulin with Lantus to be given as 20 units subcutaneous at bedtime daily as ordered. We will titrate incrementally as indicated to optimize metabolic control. We will follow. Lorrie Milan MD
[2016-12-23] MEDS ORDERED: (Lantus) Insulin Glargine, Recombinant SC SCH (22:00)
--- NOTE | 2016-12-24 00:13 | PN ---
DATE: 12/23/2016 SUBJECTIVE: The patient is seen and examined at bedside. The patient is still complaining of intermittent right ear pain. Denies any other complaints. All other systems reviewed and are found to be negative. PHYSICAL EXAMINATION GENERAL: Middle-aged male, lying in bed, in no acute distress. VITAL SIGNS: Blood pressure of 168/74, pulse of 78, respirations of 20, temperature of 97.8 degrees Fahrenheit, and O2 saturation is 97% on room air. HEENT: Pupils are equal, round and reactive to light and accommodation. Extraocular muscles intact. No icterus. No pallor. No oral thrush. No oropharyngeal congestion. NECK: Supple. No JVD. LUNGS: Bilateral vesicular breath sounds. No wheezing. No rhonchi. CARDIOVASCULAR SYSTEM: S1 and S2 present, regular. ABDOMEN: Soft and nontender. Bowel sounds present. No guarding. No rigidity. No rebound tenderness noted. CENTRAL NERVOUS SYSTEM: Alert, awake and oriented x3. No focal deficits noted. EXTREMITIES: No edema. Palpable peripheral pulses. MEDICATIONS: Include clonidine 0.3 mg p.o. t.i.d., heparin 3000 units IV push on Saturday, Saturday and Saturday, Motrin 400 mg q. 8 hours. p.r.n., Novolog 6 units subcutaneously before meal, Lantus 20 units subcutaneously at bedtime, labetalol 200 mg p.o. b.i.d., Bacid, Cozaar 25 mg daily, meropenem 500 mg IV q. 12 hours, minoxidil 10 mg p.o. b.i.d., and Zofran as needed. LABORATORY DATA: Glucose of 49, 265, 286, 102 and 72. Blood cultures are negative so far. ASSESSMENT AND PLAN: Middle-aged male with past medical history of hypertension, diabetes mellitus; end-stage renal disease,on hemodialysis; hyperlipidemia, anemia of chronic disease, osteomyelitis, and right ear malignant otitis externa, status post long-term IV antibiotics therapy, admitted for recurrent or persistent malignant otitis externa. The patient is being evaluated by Ear, Nose, and Throat; Infectious Disease, and Renal. Blood pressure is still high. We will increase labetalol dose. Continue with current antibiotics. Follow up with Ear, Nose, and Throat regarding further workup. Follow up with Infectious Disease regarding length of antibiotic course for in a.m. Gretchen Basilio MD [facility] # [id number]
[2016-12-24] MEDS: Meropenem 500 MG in Sodium Chloride 0.9% 100 ML IVPB SCH (04:40)
[2016-12-24] MEDS ORDERED: Dextrose 50% SYRINGE Inj (50 ml) IV STA (05:04)
[2016-12-24 07:39] LABS: BASO % 0.5 % (0.0-2.0); EOS # 0.2 K/uL (0.0-0.7); HEMATOCRIT 41.3 % (35.0-51.0); LYMPH # 0.5 K/uL (1.0-4.3); MEAN CELL VOLUME 93.6 fL (80.0-94.0); MEAN CORPUSCULAR HEMOGLOBIN 30.5 pg (27.0-31.0); MEAN CORPUSCULAR HGB CONC 32.5 g/dL (33.0-37.0); MONO # 0.7 K/uL (0.0-0.8); MONO % 11.4 % (0.0-10.0); NRBC % 0.1 % (0.0-2.0); PLATELET COUNT 145 K/uL (130-400); RED CELL DISTRIBUTION WIDTH 17.7 % (11.5-14.5); WHITE BLOOD COUNT 5.9 K/uL (4.8-10.8)
[2016-12-24] MEDS: (Novolog) Insulin Aspart, Recombinant 100 u/ml 10 ml vial SC SCH ×4 (07:43→14:05)
[2016-12-24 08:31] LABS: POTASSIUM 5.6 mmol/L (3.6-5.2)
[2016-12-24 08:33] LABS: ALB/GLOB RATIO 1.7 (1.0-2.1); BILIRUBIN,TOTAL 0.8 mg/dL (0.2-1.3)
[2016-12-24 08:34] LABS: CALCIUM 8.2 mg/dl (8.6-10.4)
[2016-12-24 09:26] LABS: EOSINOPHIL 6 % (0-4); NEUTROPHIL 77 % (50-75); TOTAL CELLS COUNTED 100
[2016-12-24 10:14] VITALS: RESP 18
[2016-12-24] MEDS: Lactobacillus Acidophilus 500 MU Cap PO SCH (11:15)
--- NOTE | 2016-12-24 12:32 | CP.PCM.PN ---
Subjective - Date & Time of Evaluation Date of Evaluation: 12/24/16 Time of Evaluation: 12:20 - Subjective Subjective: Discharge summary dictated #[id number] Objective - Vital Signs/Intake and Output Vital Signs (last 24 hours): Temp Pulse Resp BP Pulse Ox 98 F 72 18 170/74 H 96 12/24/16 09:40 12/24/16 09:40 12/24/16 09:40 12/24/16 11:40 12/24/16 09:40 Intake and Output: 12/24/16 12/24/16 06:59 18:59 Intake Total 450 Balance 450 - Medications Medications: Current Medications Clonidine HCl (Catapres) 0.3 mg PO TID [facility] Last Admin: 12/24/16 11:15 Dose: Not Given Heparin Sodium (Porcine) (Heparin) 3,000 units IVP MWF [facility] Last Admin: 12/24/16 09:42 Dose: 3,000 units Meropenem 500 mg/ Sodium (Chloride) 100 mls @ 100 mls/hr IVPB Q12H [facility] Last Admin: 12/24/16 04:40 Dose: 100 mls/hr Ibuprofen (Motrin Tab) 400 mg PO Q8 PRN PRN Reason: pain Last Admin: 12/23/16 09:18 Dose: 400 mg Insulin Aspart (Novolog) 0 unit SC ACHS [facility] PRN Reason: Protocol Last Admin: 12/24/16 07:43 Dose: Not Given Insulin Aspart (Novolog) 4 unit SC ACTID [facility] Last Admin: 12/24/16 07:43 Dose: Not Given Insulin Glargine (Lantus) 20 unit SC HS [facility] Last Admin: 12/23/16 22:09 Dose: Not Given Labetalol HCl (Trandate) 200 mg PO BID [facility] Last Admin: 12/24/16 11:15 Dose: Not Given Lactobacillus Acidophilus (Bacid Acidophilus) 1 cap PO BID [facility] Last Admin: 12/24/16 11:15 Dose: Not Given Losartan Potassium (Cozaar) 25 mg PO DAILY [facility] Last Admin: 12/24/16 11:15 Dose: Not Given [facility] Admin: 12/24/16 11:15 Dose: Not Given Ondansetron HCl (Zofran Inj) 4 mg IVP Q8H PRN PRN Reason: vomiting Last Admin: 12/22/16 10:31 Dose: 4 mg - Labs Labs: 12/24/16 07:11 12/24/16 07:11
[2016-12-24 13:24] VITALS: BP 174/75; PULSE 84; TEMP 98.3; O2SAT 95
--- NOTE | 2016-12-24 13:53 | CP.PCM.PN ---
Subjective - Date & Time of Evaluation Date of Evaluation: 12/24/16 Time of Evaluation: 13:51 - Subjective Subjective: House Doctor Note: Patient was admitted for persistent otitis and ESRD. Patient had HD today. As per RN, patient is not ready for discharge. Patient understands risks of leaving AMA. Patient understands and would still like to sign out. Patient is alert and oriented and able to make medical decisions. Patient signed out against medical advice. Attending aware. Physical exam refused. Paul Tomlin, DO- PGY 3 Objective - Vital Signs/Intake and Output Vital Signs (last 24 hours): Temp Pulse Resp BP Pulse Ox 98.3 F 84 18 174/75 H 95 12/24/16 12:40 12/24/16 12:40 12/24/16 12:40 12/24/16 12:40 12/24/16 12:40 Intake and Output: 12/24/16 12/24/16 06:59 18:59 Intake Total 450 Balance 450 - Medications Medications: Current Medications Clonidine HCl (Catapres) 0.3 mg PO TID [facility] Last Admin: 12/24/16 11:15 Dose: Not Given Heparin Sodium (Porcine) (Heparin) 3,000 units IVP MWF [facility] Last Admin: 12/24/16 09:42 Dose: 3,000 units Meropenem 500 mg/ Sodium (Chloride) 100 mls @ 100 mls/hr IVPB Q12H [facility] Last Admin: 12/24/16 04:40 Dose: 100 mls/hr Ibuprofen (Motrin Tab) 400 mg PO Q8 PRN PRN Reason: pain Last Admin: 12/23/16 09:18 Dose: 400 mg Insulin Aspart (Novolog) 0 unit SC ACHS [facility] PRN Reason: Protocol Last Admin: 12/24/16 07:43 Dose: Not Given Insulin Aspart (Novolog) 4 unit SC ACTID [facility] Last Admin: 12/24/16 07:43 Dose: Not Given Insulin Glargine (Lantus) 20 unit SC HS [facility] Last Admin: 12/23/16 22:09 Dose: Not Given Labetalol HCl (Trandate) 200 mg PO BID [facility] Last Admin: 12/24/16 11:15 Dose: Not Given Lactobacillus Acidophilus (Bacid Acidophilus) 1 cap PO BID [facility] Last Admin: 12/24/16 11:15 Dose: Not Given Losartan Potassium (Cozaar) 25 mg PO DAILY [facility] Last Admin: 12/24/16 11:15 Dose: Not Given Minoxidil (Loniten) 10 mg PO BIDPC [facility] Last Admin: 12/24/16 11:15 Dose: Not Given Ondansetron HCl (Zofran Inj) 4 mg IVP Q8H PRN PRN Reason: vomiting Last Admin: 12/22/16 10:31 Dose: 4 mg - Labs Labs: 12/24/16 07:11 12/24/16 07:11
[2016-12-24] MEDS ORDERED: (Lantus) Insulin Glargine, Recombinant SC SCH (22:00)
--- NOTE | 2016-12-25 05:23 | DS ---
ENDO FOLLOWUP NOTE LOCATION: Room 350. SUBJECTIVE: This is a 46-year-old male with recent uncontrolled type 2 insulin requiring diabetes presenting here with malignant otitis externa and is now receiving IV antibiotic management for treatment of the same and is also being followed closely for metabolic management. His glycemic levels are fluctuating, but improved and the latest chemistries showed BUN of 96, sodium 131, potassium 5.6, chloride 91, CO2 20, glucose 101 and creatinine 10.7. So at this time, we will continue the same basal and bolus insulin regimen as ordered with NovoLog given as 6 units t.i.d. before meals to start today and Lantus given as 20 units subcutaneously at bedtime daily to start to night. We will titrate incrementally as indicated to optimize metabolic control. We will follow and advise accordingly. Lorrie Milan MD
--- NOTE | 2016-12-25 06:29 | DS ---
DATE OF DISCHARGE AGAINST MEDICAL ADVICE: 12/24/2016 DISCHARGE DIAGNOSES: Persistent right ear malignant otitis externa, status post completion of long-term IV antibiotics; possible osteomyelitis of the mastoid on previous admission; hypertension; diabetes mellitus; end-stage renal disease, on hemodialysis; hyperlipidemia and anemia of chronic disease. 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 Today, the patient is feeling much better. Denies any headache or dizziness. Denies any chest pain, shortness of breath or wheezing. Denies any nausea, vomiting, abdominal pain, diarrhea or constipation. Denies any urinary complaints. Denies any leg pains or leg cramps. Denies any other neurologic symptoms. REVIEW OF SYSTEMS: All other systems reviewed and were found to be negative. PHYSICAL EXAMINATION: GENERAL: A middle-aged male, lying in bed, in no acute distress. VITAL SIGNS: Blood pressure 170/74, respirations 18, pulse 84, temperature 98.3 degrees Fahrenheit and O2 sat is 95% on room air. HEENT: Pupils equal, round, reacting to light and accommodation. Extraocular muscles are intact. No icterus. No pallor. No oral thrush. No oropharyngeal congestion. NECK: Supple. No JVD. No thyromegaly. ABDOMEN: Soft and nontender. Bowel sounds present. LUNGS: Bilateral vesicular breath sounds. No wheezing. No rhonchi. CARDIOVASCULAR: S1 and S2 present, regular. CENTRAL NERVOUS SYSTEM: Alert, awake and oriented x3. No focal deficits noted. EXTREMITIES: No edema. Palpable peripheral pulses. LABORATORY DATA: Labs from this morning: WBC 5.9, hemoglobin 13.4, hematocrit 41.3 and platelets 145. Sodium 131, potassium 5.6, chloride 91, bicarbonate 20, BUN 96, creatinine 10.7, glucose 101 and calcium 8.2. Other LFTs within normal limits. Blood cultures negative. HOSPITAL COURSE: The patient was admitted to the hospital. The patient was started on meropenem, evaluated by ID, ENT and Nephrology. The patient received hemodialysis this morning. The patient wants to get a second opinion from ENT and the patient does not want to stay in the hospital and he would like to follow up in another facility. I discussed with the patient at length while the patient was getting hemodialysis. The patient was advised to stay in the hospital for further care. The patient was explained the risks of going home against medical advice. The patient is alert, awake and oriented x3 and understands the consequences of going home against medical advice. Despite, the patient wanted to leave against medical advice. As the patient is alert, awake and oriented x3, the patient is being discharged against medical advice. CONDITION UPON DISCHARGE: The patient is alert, awake and oriented x3 and hemodynamically stable. DISCHARGE INSTRUCTIONS: Follow up with ENT, follow up with Renal and follow up with ID. Advised to return to the ED if any recurrence of the symptoms. DIET: Heart healthy, 1800-calorie ADA, low-sodium renal diet. ACTIVITIES: As tolerated. Gretchen Basilio MD
== END 2016-12-24 14:43 | disposition left against medical advice (07) | DRG 154 ==
LOC: C.ER 20:47 → C.9E 12-21 00:34 → C.3T 12-21 00:39
PROVIDERS: ADMIT Internal Medicine; ATTEND Internal Medicine
PROC: 5A1D70Z Performance of Urinary Filtration, Intermittent, Less than 6 Hours Per Day (ICD-10-PCS; principal; 2016-12-21)
DX: H60.21 Malignant otitis externa, right ear (principal); N18.6 End stage renal disease; K31.84 Gastroparesis; I12.0 Hypertensive chronic kidney disease with stage 5 chronic kidney disease or end stage renal disease; E11.43 Type 2 diabetes mellitus with diabetic autonomic (poly)neuropathy; Z94.0 Kidney transplant status; E78.5 Hyperlipidemia, unspecified; J34.2 Deviated nasal septum; I25.10 Atherosclerotic heart disease of native coronary artery without angina pectoris; Z79.4 Long term (current) use of insulin; Z99.2 Dependence on renal dialysis; E11.65 Type 2 diabetes mellitus with hyperglycemia; D63.1 Anemia in chronic kidney disease